=== PATIENT | female | born 1980 | race Caucasian/White ===

== ENCOUNTER 2017-03-28 10:08 | Emergency (ER) | payer SELFPAY ==
--- NOTE | 2017-03-28 12:33 | ER Document Report ---
ED Medical Screen (RME) - General Chief Complaint: Eye Problem Stated Complaint: LEFT EYE PAIN Mode of Arrival: Ambulatory Information source: Patient TRAVEL OUTSIDE OF THE [place] IN LAST 30 DAYS: No - HPI Onset: Other - SEEING BLACK SPOTS x 3 DAYS, EYE PAIN BEGAN TODAY Onset/Duration: Gradual Quality of pain: Pressure Severity: Moderate Associated Symptoms: None Exacerbated by: Other - BRIGHT LIGHTS Relieved by: Denies Similar symptoms previously: No Recently seen / treated by doctor: No - Related Data Smoking: Non-smoker Allergies/Adverse Reactions: latex [Latex] Allergy (Verified 03/28/17 10:15) Past Medical History - General Information source: Patient - Past Medical History Cardiac Medical History: Reports: None Pulmonary Medical History: Reports: None EENT Medical History: Reports: None Neurological Medical History: Reports: None Endocrine Medical History: Reports: None Renal/ Medical History: Reports: None. Denies: Hx Peritoneal Dialysis Malignancy Medical History: Reports: None GI Medical History: Reports: None Musculoskeltal Medical History: Reports None Psychiatric Medical History: Reports: None Past Surgical History: Reports: Hx Section - Immunizations Hx Diphtheria, Pertussis, Tetanus Vaccination: Yes Review of Systems - Review of Systems Constitutional: No symptoms reported. denies: Chills, Fever EENT: Eye pain Cardiovascular: No symptoms reported Respiratory: No symptoms reported Physical Exam - Vital signs Vitals: Temp Pulse Resp BP Pulse Ox 98.9 F 73 18 177/85 H 96 03/28/17 10:03/28/17 10:03/28/17 10:03/28/17 10:03/28/17 10:17 Interpretation: Hypertensive - HEENT Head: Normocephalic Eyes: Normal. No: Periorbital edema Conjunctiva: No: Injected Cornea: Normal Extraocular movements intact: Yes Pupils: PERRL Visual acuity- Right eye: 20/25 Visual acuity- Left eye: 20/50 Visual acuity- Both eyes: 20/25 Corrective lenses worn: Yes Fundascopic: Normal, Other - MILD PHOTOPHOBIA O.S. Nerve palsy: No - Respiratory Respiratory status: No respiratory distress - Cardiovascular Rhythm: Regular Course - Vital Signs Vital signs: Temp Pulse Resp BP Pulse Ox 98.9 F 73 18 177/85 H 96 03/28/17 10:03/28/17 10:03/28/17 10:17 03/28/17 10:17 03/28/17 10:17
--- NOTE | 2017-03-28 17:18 | ER Document Report ---
ED General - General Chief Complaint: Eye Problem Stated Complaint: LEFT EYE PAIN Mode of Arrival: Ambulatory Notes: Patient is a 37 year old female who presents with 5 day history of "seeing black spots" She denies any pain in her left eye but describes a "pressure" behind her eye that occurred when she woke up this morning. She does not wear contacts but does wear glasses. She denies any sensation of "curtain falling over her vision" or loss of peripheral or central vision. Denies any injury to eye or FB sensation, associated headache, dizziness, or lightheadedness. Denies any discharge or swelling. Visual acuity in R eye 20/25, L eye 20/50, bilateral 20/25. TRAVEL OUTSIDE OF THE [place] IN LAST 30 DAYS: No - Related Data Allergies/Adverse Reactions: latex [Latex] Allergy (Verified 03/28/17 10:15) Past Medical History - General Information source: Patient - Social History Smoking Status: Current Every Day Smoker Chew tobacco use (# tins/day): No Frequency of alcohol use: None Drug Abuse: None Family History: Reviewed & Not Pertinent Patient has suicidal ideation: No Patient has homicidal ideation: No - Past Medical History Cardiac Medical History: Reports: None Pulmonary Medical History: Reports: None EENT Medical History: Reports: None Neurological Medical History: Reports: None Endocrine Medical History: Reports: None Renal/ Medical History: Reports: None. Denies: Hx Peritoneal Dialysis Malignancy Medical History: Reports: None GI Medical History: Reports: None Musculoskeltal Medical History: Reports None Psychiatric Medical History: Reports: None Past Surgical History: Reports: Hx Section - Immunizations Hx Diphtheria, Pertussis, Tetanus Vaccination: Yes Review of Systems - Review of Systems Constitutional: No symptoms reported EENT: See HPI Cardiovascular: No symptoms reported Respiratory: No symptoms reported Gastrointestinal: No symptoms reported Genitourinary: No symptoms reported Female Genitourinary: No symptoms reported Musculoskeletal: No symptoms reported Skin: No symptoms reported Hematologic/Lymphatic: No symptoms reported Neurological/Psychological: No symptoms reported Physical Exam - Vital signs Vitals: Temp Pulse Resp BP Pulse Ox 98.9 F 73 18 177/85 H 96 03/28/17 10:17 03/28/17 10:17 03/28/17 10:17 03/28/17 10:17 03/28/17 10:17 - Notes Notes: PHYSICAL EXAM: CONSTITUTIONAL: Alert and oriented, well-appearing and in no acute distress. HENT: Normocephalic, atraumatic. Moist mucous membranes. EYES: Pupils equal round and reactive to light, EOM intact. Sclera anicteric, conjunctiva are normal. No entrapment. Opthalmic exam normal. No chemosis or FB. HEART: Regular rate and rhythm without murmurs. LUNGS: CTAB and equal. No wheezes, rales or rhonchi. EXTREMITIES: Normal range of motion, no pitting edema. No cyanosis. Cap Refill < 3 seconds. NEURO: Cranial nerves grossly intact. Normal sensory/motor exams. PSYCH: Normal mood, normal affect. SKIN: Warm and dry. Normal turgor. No rashes or lesions noted. - HEENT Visual acuity- Right eye: 20/25 Visual acuity- Left eye: 20/50 Visual acuity- Both eyes: 20/25 Corrective lenses worn: Yes - prescription glasses not contacts Course - Re-evaluation Re-evalutation: 03/28/17 16:37 Patient seen and examined. Opthalmic exam negative for abnormalities. Visual acuity R 20/25, L 20/50, both 20/25. Sherwin any pain or sudden blindness. Tetracaine given for comfort during exam. 03/28/17 18:38 Discussed case and consulted with Dr. Robert Villalobos opthalmology reception clerk who suggested close follow-up in his office tomorrow morning at 9:00 am for further evaluation. He felt patient was stable enough to be discharged and seen tomorrow. Discussed plan with patient who is agreeable. Advised patient to rest and avoid any rigorous activity between now and her appointment tomorrow. Given patient script for pain medication and follow-up instructions. At this time, will discharge with return precautions and follow-up recommendations. Verbal discharge instructions given at the bedside and opportunity for questions given. Medication warnings reviewed. Patient is in agreement with this plan and has verbalized understanding of return precautions and the need for primary care follow-up in the next 24-72 hours. - Vital Signs Vital signs: Temp Pulse Resp BP Pulse Ox 98.0 F 60 18 143/87 H 98 03/28/17 18:59 03/28/17 18:59 03/28/17 18:59 03/28/17 18:59 05/01/17 18:59 Discharge - Discharge Clinical Impression: Floaters in visual field Qualifiers: Laterality: left Qualified Code(s): H43.392 - Other vitreous opacities, left eye Condition: Stable Disposition: HOME, SELF-CARE Additional Instructions: You are to follow-up with Dr. Robert Villalobos tomorrow morning at his clinic at 9 AM. Address: [address] [place] [address] [place] [address] Avoid aggressive or rigorous activity until you are seen by Dr. Villalobos tomorrow. Return immediately if you notice sudden loss of vision with or without severe pain. Prescriptions: Hydrocodone/Acetaminophen [Vicodin 5-300 mg Tablet] 1 tab PO ASDIR PRN #15 tab PRN Reason: Forms: Elevated Blood Pressure
[2017-03-28] MEDS ORDERED: TETRACAINE HCL 0.5% OPH SOLN 2 ML OS ONE (17:19)
[2017-03-28] MEDS ORDERED: TRAMADOL HCL 50 MG TABLET PO ONE (18:00)
[2017-03-28 19:01] VITALS: BP 143/87
== END 2017-03-28 18:59 | disposition home or self-care (01) ==
LOC: ER 10:08
DX: H43.392 Other vitreous opacities, left eye (principal); Z91.040 Latex allergy status; F17.200 Nicotine dependence, unspecified, uncomplicated
CPT/HCPCS: 99283

== ENCOUNTER 2017-07-15 13:15 | Emergency (ER) | payer SELFPAY ==
[2017-07-15] MEDS ORDERED: KETOROLAC TROMETHAMINE 60 MG/2 ML SDV IM ONE (13:58)
--- NOTE | 2017-07-15 15:26 | RADIOLOGY REPORT (SQ) ---
EXAM DESCRIPTION: MANDIBLE 4 VIEWS OR MORE COMPLETED DATE/TIME: 07/15/2017 2:49 pm REASON FOR STUDY: left jaw swelling inside mouth COMPARISON: None. NUMBER OF VIEWS: Four view. TECHNIQUE: Images of the mandible acquired. AP, Sangeetha's, angled right, angled left mandible images. LIMITATIONS: None. FINDINGS: MANDIBLE: No acute fracture. No disruption of the right or left temporomandibular joints. ORBITS: No fracture. No foreign body. SINUSES: No mucosal thickening. No air fluid levels. FACIAL BONES: No fracture. OTHER: No aggressive bony erosion. No periapical tooth root lucencies. IMPRESSION: NO ACUTE FRACTURE OR MALALIGNMENT. No aggressive bony erosion. No periapical tooth ro ot lucencies. TECHNICAL DOCUMENTATION: JOB ID: [id number] [employer]- All Rights Reserved
--- NOTE | 2017-07-15 15:39 | ER Document Report ---
HPI - HPI Patient complains to provider of: mouth problem Onset: Other Onset/Duration: Gradual Quality of pain: Throbbing Severity: Moderate Pain Level: 3 Context: Patient states she started developing swelling to the left lower jaw next to her teeth about 1 month ago. It has gotten larger in the last week and is painful. No fever. Associated Symptoms: None Exacerbated by: Denies Relieved by: Denies Similar symptoms previously: No Recently seen / treated by doctor: No - ROS ROS below otherwise negative: Yes Systems Reviewed and Negative: Yes All other systems reviewed and negative - CONSTITUTIONAL Constitutional: DENIES: Fever - EENT EENT: DENIES: Congestion - NEURO Neurology: DENIES: Headache - CARDIOVASCULAR Cardiovascular: DENIES: Chest pain - RESPIRATORY Respiratory: DENIES: Trouble Breathing - GASTROINTESTINAL Gastrointestinal: DENIES: Abdominal Pain - REPRODUCTIVE Reproductive: DENIES: : - MUSCULOSKELETAL Musculoskeletal: DENIES: Extremity pain - DERM Skin Color: Normal Past Medical History - General Information source: Patient - Social History Smoking Status: Current Every Day Smoker Chew tobacco use (# tins/day): No Frequency of alcohol use: None Drug Abuse: None Lives with: Family Family History: Reviewed & Not Pertinent - Medical History Medical History: Negative Past Surgical History: Reports: Hx Section - Immunizations Hx Diphtheria, Pertussis, Tetanus Vaccination: Yes Vertical Provider Document - CONSTITUTIONAL Agree With Documented VS: Yes Exam Limitations: No Limitations General Appearance: WD/WN, No Apparent Distress - INFECTION CONTROL TRAVEL OUTSIDE OF THE [place] IN LAST 30 DAYS: No - HEENT HEENT: Atraumatic, Normal ENT Exam, Normocephalic Mouth Diagram: 1 - hard, bony feeling area. Normal mucosal color, no erythema or evidence of abscess. - NECK Neck: Normal Inspection, Supple - RESPIRATORY Respiratory: Breath Sounds Normal, No Respiratory Distress O2 Sat by Pulse Oximetry: 97 - CARDIOVASCULAR Cardiovascular: Regular Rate, Regular Rhythm - MUSCULOSKELETAL/EXTREMETIES Musculoskeletal/Extremeties: MAEW - NEURO Level of Consciousness: Awake, Alert, Appropriate - DERM Integumentary: Warm, Dry, No Rash Course - Vital Signs Vital signs: Temp Pulse Resp BP Pulse Ox 98.3 F 92 18 162/85 H 97 07/15/17 13:20 07/15/17 13:20 07/15/17 13:20 07/15/17 13:20 07/15/17 13:20 Discharge - Discharge Clinical Impression: Buccal exostosis of jaw Condition: Good Disposition: HOME, SELF-CARE Additional Instructions: motrin prn you must follow up with oral surgeon for further evaluation, does not appear to be an abscess, but more of a bone growth (exostosis) which can occur anywhere in the body. return if worsens and as needed Prescriptions: Ibuprofen 800 mg PO PRN PRN #30 tablet PRN Reason: Tramadol HCl 50 mg PO PRN PRN #15 tablet PRN Reason: Referrals: ESTELITA KNOTT DDS [ACTIVE STAFF] - Follow up as needed
[2017-07-15 16:15] VITALS: BP 154/82
== END 2017-07-15 16:10 | disposition home or self-care (01) ==
LOC: ER 13:15
DX: M27.8 Other specified diseases of jaws (principal); K08.89 Other specified disorders of teeth and supporting structures; R68.84 Jaw pain; F17.200 Nicotine dependence, unspecified, uncomplicated
CPT/HCPCS: 99283; 96372; 70110; J1885

== ENCOUNTER 2019-11-28 01:27 | Outpatient (CLI) | payer MEDICAID ==
[2019-11-28 02:04] LABS: HEMATOCRIT 41.2 % (36.0-47.0); HEMOGLOBIN 13.9 g/dL (12.0-15.5); MEAN CORPUSCULAR HEMOGLOBIN 29.3 pg (27.0-33.4); MEAN CORPUSCULAR HGB CONC 33.7 g/dL (32.0-36.0); MEAN CORPUSCULAR VOLUME 87 fl (80-97); PLATELET COUNT 268 10^3/uL (150-450); RED BLOOD COUNT 4.74 10^6/uL (3.72-5.28); RED CELL DISTRIBUTION WIDTH 14.1 % (11.5-14.0); WHITE BLOOD COUNT 18.8 10^3/uL (4.0-10.5)
[2019-11-28 02:06] LABS: APPEARANCE,URINE SLIGHTLY-CLOUDY; BILIRUBIN,URINE NEGATIVE (NEGATIVE); COLOR,URINE YELLOW; GLUCOSE, URINE 50 mg/dL (NEGATIVE); KETONES,URINE NEGATIVE (NEGATIVE); LEUKOCYTE ESTERASE,URINE NEGATIVE (NEGATIVE); NITRITE,URINE NEGATIVE (NEGATIVE); PROTEIN,URINE 30 mg/dL (NEGATIVE); URINE SPECIFIC GRAVITY 1.019; UROBILINOGEN,URINE NEGATIVE mg/dL (<2.0)
[2019-11-28 02:19] LABS: ALBUMIN 3.5 g/dL (3.5-5.0); ALKALINE PHOSPHATASE 107 U/L (38-126); ANION GAP 11 (5-19); ASPARTATE AMINO TRANSFERASE 12 U/L (14-36); BILIRUBIN,DIRECT 0.2 mg/dL (0.0-0.4); BILIRUBIN,TOTAL 0.3 mg/dL (0.2-1.3); BLOOD UREA NITROGEN 10 mg/dL (7-20); CALCIUM 9.5 mg/dL (8.4-10.2); CARBON DIOXIDE 19 mmol/L (22-30); CHLORIDE 107 mmol/L (98-107); GLUCOSE 138 mg/dL (75-110); POTASSIUM 4.2 mmol/L (3.6-5.0); TOTAL PROTEIN 6.3 g/dL (6.3-8.2); URIC ACID 4.9 mg/dL (2.5-7.0)
[2019-11-28 02:24] LABS: URINE AMPHETAMINES SCREEN NEGATIVE; URINE BARBITURATES SCREEN NEGATIVE; URINE BENZODIAZEPINES SCREEN NEGATIVE; URINE COCAINE SCREEN NEGATIVE; URINE MARIJUANA (THC) SCREEN NEGATIVE; URINE METHADONE SCREEN NEGATIVE; URINE PHENCYCLIDINE SCREEN NEGATIVE
[2019-11-28 02:33] LABS: UR PRO/CREAT RATIO RESULT 0.2 mg/mg (0.0-0.2); URINE PROTEIN 24.6 mg/dL (<12)
[2019-11-28] MEDS ORDERED: BUTALB/ACETAMINOPHEN/CAFFEINE 1 TAB EACH ONE (02:44)
[2019-11-28] MEDS ORDERED: BUTALB/ACETAMINOPHEN/CAFFEINE 1 TAB EACH PO ONE (03:00)
--- NOTE | 2019-11-28 03:57 | Non Stress Test Report ---
Non Stress Test Datetime Report Generated by CPN: 11/28/2019 03:56 DEMOGRAPHIC EGA NST: 34.5 INDICATION Indication for Study (NST) Other: gestational age > 32 weeks VITAL SIGNS Temperature - NST: 98.7 Pulse - NST: 82 RESP - NST: 16 NBPSYS NST: 139 NBPDIA NST: 66 MONITORING Monitor Explained: Monitor Explained; Test Explained; Patient Verbalized Understanding Time on Monitor: 11/28/2019 02:44 Time off Monitor: 11/28/2019 03:04 NST Duration: 20 NST INTERVENTIONS NST Interventions: None Physician Notified NST: Dr. Alba BABY A: [id number] BABY A Movement : Present Contraction Frequency : 0 FHR Baseline : 120 Accelerations : 15X15 Decelerations : None Variability : Moderate 6-25bpm NST Review: Meets Criteria for Reactive NST NST Review and Verified By : Amanda Edmond RN NST Results: Reactive NST REPORT Report Trigger: Send Report
[2019-11-29 18:39] LABS: URINE PROTEIN 13.8 mg/dL (<12)
[2019-11-29 18:40] LABS: 24 HOUR URINE PROTEIN RESULT 337 mg/day (42-225)
== END 2019-11-28 03:49 | disposition home or self-care (01) ==
LOC: LC 01:27
PROVIDERS: ATTEND Student in an Organized Health Care Education/Training Program
DX: O16.3 Unspecified maternal hypertension, third trimester (principal); O09.523 Supervision of elderly multigravida, third trimester; O99.333 Smoking (tobacco) complicating pregnancy, third trimester; F17.210 Nicotine dependence, cigarettes, uncomplicated; Z3A.34 34 weeks gestation of pregnancy
CPT/HCPCS: 59025; 36415; 83615; 84156; 84550; 82570; 85027; 80053; 81001; 80307; J3490

== ENCOUNTER 2019-12-12 14:29 | Inpatient (IN) | payer MEDICAID ==
[2019-12-12 15:08] LABS: APPEARANCE,URINE CLEAR; BILIRUBIN,URINE NEGATIVE (NEGATIVE); COLOR,URINE YELLOW; GLUCOSE, URINE 50 mg/dL (NEGATIVE); KETONES,URINE TRACE mg/dL (NEGATIVE); LEUKOCYTE ESTERASE,URINE NEGATIVE (NEGATIVE); NITRITE,URINE NEGATIVE (NEGATIVE); PROTEIN,URINE 100 mg/dL (NEGATIVE); URINE SPECIFIC GRAVITY 1.029; UROBILINOGEN,URINE NEGATIVE mg/dL (<2.0)
[2019-12-12 15:39] LABS: ABSOLUTE BASOPHILS # (AUTO) 0.1 10^3/uL (0.0-0.2); ABSOLUTE EOSINOPHILS # (AUTO) 0.1 10^3/uL (0.0-0.6); ABSOLUTE LYMPHOCYTES (AUTO) 2.9 10^3/uL (0.5-4.7); ABSOLUTE MONOCYTES (AUTO) 0.7 10^3/uL (0.1-1.4); ABSOLUTE NEUT (AUTO) 11.3 10^3/uL (1.7-8.2); BASOPHILS % (AUTO) 0.6 % (0-2); EOSINOPHILS % (AUTO) 0.7 % (0-6); HEMATOCRIT 38.5 % (36.0-47.0); HEMOGLOBIN 13.3 g/dL (12.0-15.5); LYMPHOCYTES % (AUTO) 18.9 % (13-45); MEAN CORPUSCULAR HEMOGLOBIN 30.1 pg (27.0-33.4); MEAN CORPUSCULAR HGB CONC 34.6 g/dL (32.0-36.0); MEAN CORPUSCULAR VOLUME 87 fl (80-97); MONOCYTES % (AUTO) 4.8 % (3-13); PLATELET COUNT 278 10^3/uL (150-450); RED BLOOD COUNT 4.44 10^6/uL (3.72-5.28); TOTAL CELLS COUNTED % (AUTO) 100 %; WHITE BLOOD COUNT 15.1 10^3/uL (4.0-10.5)
[2019-12-12 15:54] LABS: ALKALINE PHOSPHATASE 115 U/L (38-126); ANION GAP 9 (5-19); ASPARTATE AMINO TRANSFERASE 13 U/L (14-36); BILIRUBIN,DIRECT 0.1 mg/dL (0.0-0.4); BILIRUBIN,TOTAL 0.2 mg/dL (0.2-1.3); BLOOD UREA NITROGEN 9 mg/dL (7-20); CALCIUM 9.1 mg/dL (8.4-10.2); CARBON DIOXIDE 19 mmol/L (22-30); CHLORIDE 106 mmol/L (98-107); GLUCOSE 91 mg/dL (75-110); POTASSIUM 3.9 mmol/L (3.6-5.0); TOTAL PROTEIN 5.7 g/dL (6.3-8.2); URIC ACID 5.6 mg/dL (2.5-7.0)
[2019-12-12 16:27] LABS: URINE AMPHETAMINES SCREEN NEGATIVE; URINE BARBITURATES SCREEN NEGATIVE; URINE BENZODIAZEPINES SCREEN NEGATIVE; URINE COCAINE SCREEN NEGATIVE; URINE MARIJUANA (THC) SCREEN NEGATIVE; URINE METHADONE SCREEN NEGATIVE; URINE PHENCYCLIDINE SCREEN NEGATIVE
[2019-12-12 16:31] LABS: UR PRO/CREAT RATIO RESULT 0.3 mg/mg (0.0-0.2); URINE CREATININE 234.3 mg/dL (16-327); URINE PROTEIN 74.8 mg/dL (<12)
[2019-12-12] MEDS ORDERED: BETAMET ACET/BETAMET NA INJ 6 MG/1 ML IM ONE (17:14)
[2019-12-12] MEDS ORDERED: BETAMET ACET/BETAMET NA INJ 6 MG/1 ML ONE (17:40)
[2019-12-12] MEDS ORDERED: NIFEDIPINE 30 MG TAB.ER.24 PO ONE (17:41)
[2019-12-12] MEDS ORDERED: GLUCAGON,HUMAN RECOMB 1 MG INJ IM PRN (20:48)
[2019-12-12] MEDS ORDERED: DEXTROSE 50%-WATER 25 GM/50 ML DISP.SYRIN IV PRN ×2 (20:48)
[2019-12-12] MEDS ORDERED: DEXTROSE 40% GEL 15 GM TUBE PO PRN ×2 (20:48)
[2019-12-12 20:56] LABS: CHLAM PCR NOT DETECTED (NOT DETECT)
[2019-12-12] MEDS: NIFEDIPINE 30 MG TAB.ER.24 PO SCH (21:01)
[2019-12-12] MEDS ORDERED: GLYBURIDE 5 MG TABLET ONE (21:31)
[2019-12-12] MEDS ORDERED: INSULIN REG, HUMAN 100 UNIT/ML 3 ML VIAL (PYX) ONE (22:13)
[2019-12-12] MEDS: INSULIN REG, HUMAN 100 UNIT/ML 3 ML VIAL (PYX) SUBCUT SCH (22:15)
[2019-12-12] MEDS ORDERED: MAG HYDROX/AL HYDROX/SIMETH SUSP 30 ML UDCUP ONE (23:02)
[2019-12-12] MEDS: GLYBURIDE 2.5 MG TABLET PO SCH (23:04)
--- NOTE | 2019-12-12 23:15 | Non Stress Test Report ---
Non Stress Test Datetime Report Generated by CPN: 12/12/2019 23:14 DEMOGRAPHIC EGA NST: 36.5 EGA NST: 36.5 INDICATION Indication for Study (NST) Other: Q Shift NST for gestional age greater than 32 weeks Indication for Study (NST) Other: OBESITY VITAL SIGNS Temperature - NST: 98.1 Pulse - NST: 79 RESP - NST: 17 NBPSYS NST: 151 NBPDIA NST: 69 MONITORING Monitor Explained: Monitor Explained; Test Explained; Patient Verbalized Understanding Monitor Explained: Monitor Explained; Test Explained; Patient Verbalized Understanding Time on Monitor: 12/12/2019 21:59 Time on Monitor: 12/12/2019 14:45 Time off Monitor: 12/12/2019 22:57 NST Duration: 58 NST INTERVENTIONS NST Interventions: PO Hydration; Meal Given; Reposition Patient NST Interventions: PO Hydration; Reposition Patient Physician Notified NST: BABY A: [id number] BABY A Movement : Present Movement : Present Contraction Frequency : uterine irritabilty Contraction Frequency : IRREG FHR Baseline : 135 FHR Baseline : 135 Accelerations : 15X15 Accelerations : 15X15 Accelerations : 15X15 Decelerations : None Decelerations : None Variability : Moderate 6-25bpm Variability : Moderate 6-25bpm NST Review: Meets Criteria for Reactive NST NST Review and Verified By : JORDIN Alexis NST Results: Reactive NST Results: Reactive NST REPORT Report Trigger: Send Report
[2019-12-12] MEDS ORDERED: MAG HYDROX/AL HYDROX/SIMETH SUSP 30 ML UDCUP PO ONE (23:30)
--- NOTE | 2019-12-13 07:59 | Admission Physical ---
Datetime Report Generated by CPN: 12/13/2019 07:59 CURRENT ADMISSION Chief Complaint: Signs/Symptoms Gestational HTN Indication for Induction: Not Applicable Admit Impression : , Intrauterine ; No Active Labor; Intact Membranes; Observation/Evaluation Admit Plan: Admit to Unit; Observation/Evaluation ALLERGIES Medication Allergies: No Medication Allergies: latex (12/12/2019) Latex: Latex Allergies Food Allergies: n/a Environmental Allergies: n/a OBSTETRICAL HISTORY EDC: 01/04/2020 00:00 : 3 Para: 2 Term: 2 : 0 SAB: 0 IAB: 0 Ectopic: 0 Livin Cesareans: 2 VBACs: 0 Multiple Births: 0 Gestational Diabetes: Yes Rh Sensitization: No Incompetent Cervix: No ADAM: No Infertility: No ART Treatment: No Uterine Anomaly: No IUGR: No Hx Previous C/S: Yes Macrosomia: No Hx Loss/Stillborn: No PIH: No Hx : No Placenta Previa/Abruption: No Depression/PP Depression: No PTL/PROM: No Post Hemorrhage: No Current Procedures: Ultrasound; NST Obstetrical History Comments: [id number] G3- current SEE RECORDS Alcohol: No Marijuana : No Cocaine: No Other Illicit Drugs: No Cigarettes: Current Everyday Smoker. [id number] MEDICAL HISTORY Diabetes: No Diabetes Type: Gestational Diabetes Blood Transfusion: No Pulmonary Disease (Asthma, TB): No Breast Disease: No Hypertension: Yes Actuary Surgery: No Heart Disease: No Hosp/Surgery: Yes Autoimmune Disorder: No Anesthetic Complications: No Kidney Disease: No Abnormal Pap Smear: Yes Neuro/Epilepsy: No Psychiatric Disorders: No Other Medical Diseases: No Hepatitis/Liver Disease: No Significant Family History: No Varicosities/Phlebitis: No Trauma/Violence : No Thyroid Dysfunction: No INFECTIOUS HISTORY Gonorrhea: No Genital Herpes: No Chlamydia: No Tuberculosis: No Syphilis: No Hepatitis: No HIV/AIDS Exposure: No Rash or Viral Illness: No HPV: No PHYSICAL EXAM General: Normal HEENT: Normal Neurologic: Normal Thyroid: Deferred Heart: Normal Lungs: Normal Breast: Deferred Back: Normal Abdomen: Normal Genitourinary Exam: Normal Extremities: Normal DTRs: Normal Pelvic Type: Adequate Vital Signs: Reviewed MEMBRANES Membranes: Intact FETUS A EGA: 36.5 Monitoring: External US FHR- Baseline: 125 Variability: Moderate 6-25bpm Accelerations: 15X15 FHR Category: Category I Admit Comment: 39yo at 36+5ega presents from the office for elevated BPs. She had severe range BPs in the office. She denies CERDA/blurry vision/RUQ pain. She reports that she has not taken her BP meds in 3-4days (Procardia XL 30mg po daily) and also has not taken her Glyburide (1.25mg QHS with snack). A long discussion with patient and family regarding with poor control of GDM. fasting at her 3 hr GTT was 130. Therefore she is likely prediabetic. Hb A1c on admission is 6.4. H/o C/S x 2. AMA. SMoker down to 3 cig per day. Plan treat BPs and if can maintain BPs within mild range then may be able to delay imminent delivery. She will need BMZ in case of need for delivery prior to 37wks. will cover sugar values with insulin SS. She has latex allergy - but spoke with pharmacy and there is no preservative or latex in the insulin in our hospital that should give patient an allergy. case d/w NICU Dr. Mohan as well due to risk of respiratory distress in uncontrolled DM and less than 37wks. will try to collect 24 hour UTP and get at least 12 hours of steroids for FLM. Will change Procardia to BID. Admit for optimize until delivery (hopefully after 24 hours of steroids) and sugar control - to decrease risk of respiratory distress. Consent signed for Repeat section with BTL. GC/Chlam done and GBS done since not done in office yet. PLANS FOR LABOR AND DELIVERY Labor and Delivery: None Pain Management: Spinal Feeding Preference: Breast Benefit of Breast Feed Discussed: Yes Circumcision: N/A INFORMED CONSENT Informed Consent Obtained: Section Delivery; Risks, Benefits and Alternatives Discussed Signature: with User ID: [email or web address]
[2019-12-13] MEDS ORDERED: DEXTROSE 50%-WATER 25 GM/50 ML DISP.SYRIN IV PRN ×2 (08:33)
[2019-12-13] MEDS ORDERED: GLUCAGON,HUMAN RECOMB 1 MG INJ IM PRN (08:33)
[2019-12-13] MEDS ORDERED: DEXTROSE 40% GEL 15 GM TUBE PO PRN ×2 (08:33)
[2019-12-13] MEDS ORDERED: INSULIN REG, HUMAN 100 UNIT/ML 3 ML VIAL (PYX) SUBCUT SCH ×3 (08:45→13:00)
[2019-12-13] MEDS ORDERED: INSULIN NPH (ISOPHANE), HUMAN 100 UNIT/ML 3 ML ONE (08:45)
[2019-12-13] MEDS: INSULIN NPH (ISOPHANE), HUMAN 100 UNIT/ML 3 ML SUBCUT SCH (08:49)
[2019-12-13] MEDS ORDERED: NIFEDIPINE 30 MG TAB.ER.24 PO ONE (09:47)
[2019-12-13] MEDS: NIFEDIPINE 30 MG TAB.ER.24 PO SCH ×2 (09:50→22:29)
--- NOTE | 2019-12-13 09:59 | Non Stress Test Report ---
Non Stress Test Datetime Report Generated by CPN: 12/13/2019 09:58 DEMOGRAPHIC EGA NST: 36.6 INDICATION Indication for Study (NST) Other: Ordered Q Shift MONITORING Monitor Explained: Monitor Explained; Test Explained; Patient Verbalized Understanding Time on Monitor: 12/13/2019 09:23 Time off Monitor: 12/13/2019 09:44 NST Duration: 21 NST INTERVENTIONS NST Interventions: None Physician Notified NST: A Fajardo CNM BABY A Movement : Present Contraction Frequency : none FHR Baseline : 130 Accelerations : 15X15 Decelerations : None Variability : Moderate 6-25bpm NST Review: Meets Criteria for Reactive NST NST Review and Verified By : Fermin Nicolas RN NST Results: Reactive NST REPORT Report Trigger: Send Report
[2019-12-13] MEDS ORDERED: BETAMET ACET/BETAMET NA INJ 6 MG/1 ML IM SCH (12:16)
[2019-12-13] MEDS: INSULIN REG, HUMAN 100 UNIT/ML 3 ML VIAL (PYX) SUBCUT SCH ×2 (14:24→20:10)
[2019-12-13 15:36] LABS: URINE PROTEIN 24.9 mg/dL (<12)
[2019-12-13 15:37] LABS: 24 HOUR URINE PROTEIN RESULT 471 mg/day (42-225)
[2019-12-13] MEDS ORDERED: BETAMET ACET/BETAMET NA INJ 6 MG/1 ML IM PRN (17:52)
[2019-12-13] MEDS ORDERED: DIPHENHYDRAMINE HCL 25 MG CAPSULE PO PRN (21:40)
[2019-12-13] MEDS: GLYBURIDE 2.5 MG TABLET PO SCH (22:30)
[2019-12-14] MEDS ORDERED: RINGERS SOLUTION,LACTATED 1,000 ML IV PRN (01:40)
[2019-12-14] MEDS ORDERED: RINGERS SOLUTION,LACTATED 1,000 ML IV ONE (01:40)
[2019-12-14] MEDS ORDERED: NORMAL SALINE 250 ML IV PRN (01:48)
[2019-12-14 02:40] LABS: ABSOLUTE BASOPHILS # (AUTO) 0.1 10^3/uL (0.0-0.2); ABSOLUTE MONOCYTES (AUTO) 0.5 10^3/uL (0.1-1.4); BASOPHILS % (AUTO) 0.4 % (0-2); HEMATOCRIT 38.8 % (36.0-47.0); LYMPHOCYTES % (AUTO) 13.6 % (13-45); MEAN CORPUSCULAR HEMOGLOBIN 29.3 pg (27.0-33.4); MEAN CORPUSCULAR HGB CONC 33.6 g/dL (32.0-36.0); MEAN CORPUSCULAR VOLUME 87 fl (80-97); MONOCYTES % (AUTO) 3.4 % (3-13); PLATELET COUNT 267 10^3/uL (150-450); RED BLOOD COUNT 4.45 10^6/uL (3.72-5.28); RED CELL DISTRIBUTION WIDTH 13.8 % (11.5-14.0); SEGMENTED NEUTROPHILS % (AUTO) 82.6 % (42-78); TOTAL CELLS COUNTED % (AUTO) 100 %; WHITE BLOOD COUNT 14.5 10^3/uL (4.0-10.5)
[2019-12-14] MEDS ORDERED: CEFAZOLIN SODIUM 3 GM in DEXTROSE 5%-WATER 50 ML IV PRN (06:00)
[2019-12-14] MEDS ORDERED: CEFAZOLIN INJ 1 GM VIAL ONE (06:18)
[2019-12-14] MEDS ORDERED: MIDAZOLAM 2 MG/2 ML INJ ONE (07:24)
[2019-12-14] MEDS ORDERED: FENTANYL CITRATE INJ/PF 100 MCG/2 ML AMPUL ONE ×2 (07:24→10:11)
[2019-12-14] MEDS ORDERED: KETOROLAC TROMETHAMINE INJ/PF 30 MG/1 ML SDV ONE (07:24)
[2019-12-14] MEDS ORDERED: OXYTOCIN 10 UNIT/ML VIAL ONE (07:24)
[2019-12-14] MEDS ORDERED: EPHEDRINE SULFATE INJ 50 MG/1 ML AMPULE ONE (07:24)
[2019-12-14] MEDS ORDERED: PHENYLEPHRINE HCL INJ/PF 10 MG/1 ML SDV ONE (07:24)
[2019-12-14] MEDS ORDERED: ONDANSETRON HCL INJ/PF 4 MG/2 ML SDV ONE (07:25)
[2019-12-14] MEDS ORDERED: METHYLERGONOVINE MALEATE INJ/PF 0.2 MG/1 ML AMPULE ONE (07:25)
[2019-12-14] MEDS ORDERED: ACETAMINOPHEN 1,000 MG/100 ML RTUPB IV ONE (07:25)
[2019-12-14] MEDS ORDERED: OXYTOCIN/NORMAL SALINE 20 UNIT/1,000 ML RTUINJ IV PRN (08:29)
[2019-12-14] MEDS ORDERED: MORPHINE SULFATE 10 MG/ML INJ IM PRN (08:29)
[2019-12-14] MEDS ORDERED: ACETAMINOPHEN 325 MG TABLET PO PRN (08:29)
[2019-12-14] MEDS ORDERED: SIMETHICONE 80 MG TAB.CHEW PO PRN (08:29)
[2019-12-14] MEDS ORDERED: DIPH/PERTUSS(ACELL)/TETANUS VAC/PF 0.5 ML SYR (>=10YO) IM PRN (08:29)
[2019-12-14] MEDS ORDERED: MEASLES,MUMPS&RUBELLA VACC/PF 0.5 ML VIAL SUBCUT PRN (08:29)
[2019-12-14] MEDS ORDERED: ACETAMINOPHEN 1,000 MG/100 ML RTUPB IV PRN (08:29)
[2019-12-14] MEDS ORDERED: PROMETHAZINE HCL INJ 25 MG/1 ML VIAL IV PRN ×3 (08:29→09:00)
--- NOTE | 2019-12-14 08:37 | PDOC DELIVERY SUMMARY ---
Delivery Summary - Maternal NICK: 01/04/20 Risk Factors: Gestational Diabetes, Induced HTN, Pre- Eclampsia Ruptured Membranes: AROM Time of Rupture: 08:05 Fluids: Clear - Delivery Presentation: Vertex Heart Rate Monitoring: Done Pre-Operatively Support Person Present: Yes Location: OR : Scheduled Placenta: Within Normal Limits Delivery of Placenta Date: 12/14/19 Delivery of Placenta Time: 08:08 - Medications Type of Anesthesia:: Spinal - Assess and Care Baby 1 Female Delivery of Date: 12/14/19 Delivery of Time: 08:07 Preprinted Number On Band: [id number] Infant Skin to Skin: Yes Skin to Skin (Mins): 6 To Nursery At: 08:18 Mode of Transport: [facility], [place]
--- NOTE | 2019-12-14 08:37 | Operative Report ---
Operative Report DATE OF SURGERY: 12/14/19 PREOPERATIVE DIAGNOSIS: Intrauterine the early term gestational diabe warren chronic hypertension prior section POSTOPERATIVE DIAGNOSIS: Same OPERATION: Repeat low transverse section delivery of a viable male Apgars of 8 9 and weighing 8 pounds SURGEON: NEVIN ARGUELLES ANESTHESIA: Spinal TISSUE REMOVED OR ALTERED: Placenta ESTIMATED BLOOD LOSS: Approximately 100 cc PROCEDURE: The patient was taken to the operating room where spinal anesthesia was obtained and found to be adequate. She was then prepped and draped in the normal sterile fashion and placed in the dorsal supine position with a leftward tilt. A Pfannenstiel skin incision was then made and carried through to the underlying layers of the fascia with the scalpel. The fascia was incised in the midline and the incision extended laterally with the Sanchez scissors. The superior aspect of the fascial incision was then grasped with Joselin clamps elevated and the underlying rectus muscles dissected off bluntly. Attention was then turned to the inferior aspect of the fascial incision which in a similar fashion was grasped, tented up with Davon clamps, and the rectus muscles dissected off bluntly. The rectus muscles were then in the midline and the peritoneum at the amount identified and entered bluntly. The peritoneal incision was then extended superiorly and inferiorly with good visualization of the bladder. [The bladder blade was inserted and the vesicouterine peritoneum identified grasped with Eritrean pickups and entered sharply with the Metzenbaum scissors. His incision was then extended laterally with the Metzenbaum scissors and a bladder flap created digitally. The bladder blade was then reinserted and the lower uterine segment incised in a transverse fashion with the scalpel. The uterine incision was then extended bluntly. The bladder blade was removed and the infant's head was delivered from cephalic presentation atraumatically with Kiwi vacuum extraction. The nose and mouth were suctioned and the cord doubly clamped and cut. And the infant was handed off to waiting pediatricians. The placenta was then delivered manully and the uterus exteriorized and cleared of all clots and debris. The uterine incision was then repaired with 1-0 Vicryl in a running locked fashion. A second layer of the same suture was used to obtain hemostasis via imbrication of the initial layer. The uterus was returned to the patient's abdomen. The gutters were cleared of all clots and debris. All operative sites were noted to be hemostatic. The fascia was reapproximated with 0 Vicryl in a running fashion from each lateral edge to the midline. The patient tolerated the procedure well. Sponge lap needle and instrument counts are correct -2. 2 g of Ancef were given prior to skin incision. The patient was taken to the recovery area awake and in stable condition.
[2019-12-14] MEDS ORDERED: DIPHENHYDRAMINE HCL 50 MG/ML VIAL IV PRN (09:00)
[2019-12-14] MEDS ORDERED: MEPERIDINE HCL/PF INJ 25 MG/1 ML DISP.SYRIN IV PRN (09:00)
[2019-12-14] MEDS ORDERED: FENTANYL CITRATE INJ/PF 100 MCG/2 ML AMPUL IV PRN ×3 (09:00)
[2019-12-14] MEDS ORDERED: MORPHINE SULFATE 10 MG/ML INJ IV PRN (09:00)
[2019-12-14] MEDS ORDERED: NIFEDIPINE 30 MG TAB.ER.24 PO SCH (10:00)
[2019-12-14] MEDS ORDERED: GLYBURIDE 5 MG TABLET PO SCH (10:00)
[2019-12-14] MEDS ORDERED: [UNRECOGNIZED DRUG - OTHER] PO SCH (10:00)
[2019-12-14] MEDS: INSULIN NPH (ISOPHANE), HUMAN 100 UNIT/ML 3 ML SUBCUT SCH (10:53)
[2019-12-14] MEDS: INSULIN REG, HUMAN 100 UNIT/ML 3 ML VIAL (PYX) SUBCUT SCH (10:54)
[2019-12-14] MEDS: OXYCODONE-ACETAMINOPHEN 5-325 MG TABLET PO PRN ×3 (11:05→21:19)
[2019-12-14] MEDS: MULTIVITAMINS W-IRON TABLET, CHEWABLE PO SCH (11:27)
[2019-12-14] MEDS: PRENATAL VITAMIN W DHA CAPSULE PO SCH (11:27)
[2019-12-14] MEDS: DOCUSATE SODIUM 100 MG CAPSULE PO SCH ×2 (11:29→17:07)
[2019-12-14] MEDS: NIFEDIPINE 30 MG TAB.ER.24 PO SCH ×2 (12:23→21:19)
[2019-12-14] MEDS: IBUPROFEN 800 MG TABLET PO SCH ×3 (13:20→23:48)
[2019-12-15] MEDS: OXYCODONE-ACETAMINOPHEN 5-325 MG TABLET PO PRN ×4 (02:08→21:01)
[2019-12-15] MEDS: IBUPROFEN 800 MG TABLET PO SCH ×3 (06:09→17:09)
[2019-12-15 07:12] LABS: HEMATOCRIT 36.7 % (36.0-47.0); HEMOGLOBIN 12.4 g/dL (12.0-15.5); MEAN CORPUSCULAR HEMOGLOBIN 29.7 pg (27.0-33.4); MEAN CORPUSCULAR HGB CONC 33.7 g/dL (32.0-36.0); MEAN CORPUSCULAR VOLUME 88 fl (80-97); PLATELET COUNT 260 10^3/uL (150-450); RED BLOOD COUNT 4.17 10^6/uL (3.72-5.28); RED CELL DISTRIBUTION WIDTH 14.2 % (11.5-14.0); WHITE BLOOD COUNT 18.9 10^3/uL (4.0-10.5)
[2019-12-15] MEDS: DOCUSATE SODIUM 100 MG CAPSULE PO SCH ×2 (09:38→17:08)
[2019-12-15] MEDS: NIFEDIPINE 30 MG TAB.ER.24 PO SCH ×2 (09:38→21:01)
[2019-12-15] MEDS: MULTIVITAMINS W-IRON TABLET, CHEWABLE PO SCH (09:39)
[2019-12-15] MEDS: PRENATAL VITAMIN W DHA CAPSULE PO SCH (09:40)
--- NOTE | 2019-12-15 09:41 | PDOC PROGRESS REPORT ---
Subjective-OB Progress Note for:: 12/15/19 - POD #1, doing well, s/p Rpt , up voiding, no complaints, Hx CHTN. A negative, will need Rhogam , Rubella Immune Physical Exam (OB) Vital Signs: Temp Pulse Resp BP Pulse Ox 98.1 F 80 16 150/70 H 97 12/15/19 07:37 12/15/19 07:37 12/15/19 07:37 12/15/19 07:37 12/15/19 07:37 Intake & Output 12/14/19 12/15/19 12/16/19 06:59 06:59 06:59 Intake Total 3130 Output Total 1800 Balance 1330 - General General Appearance: Appears well, Alert In distress: None - PIH/Pre-Eclampsia Clonus: Negative Headache: Absent Epigastric Pain: No Visual Changes: No - Dressing Removed: Yes Incision: Well Approximated Closure Type: Steri-Strips Note: needs a few steri-strips to incsion - Lochia Lochia Amount: Scant < 10 ml Lochia Color: Rubra/Red - Abdomen Description: Tender Hernia Present: No Fundal Description: Firm, Midline Fundal Height: u/u - u/2 - Respiratory Respiratory Status: No respiratory distress Breath sounds: Clear - Cardiovascular Heart Sounds: Normal auscultation - Abdominal Distension: No distension Abdominal Notes: +bowel sounds - Genitourinary Genitourinary Note: voiding - Extremities Upper extremity: Normal inspection Lower extremities: Normal inspection - Neurological Cognition: Normal Orientation: AAOx4 - Psychological Associated symptoms: Normal affect, Normal mood - Skin Skin Temperature: Warm Skin Moisture: Dry Objective-Diagnostic Laboratory: 12/15/19 06:55 12/12/19 15:23 12/15/19 12/15/19 06:55 06:55 WBC 18.9 H RBC 4.17 Hgb 12.4 Hct 36.7 MCV 88 MCH 29.7 MCHC 33.7 RDW 14.2 H Plt Count 260 Blood Type A NEGATIVE 12/12/19 18:44 Vaginal/Anorectal Group B Streptococcus Culture - Final GROUP B BETA HEMOLYTIC STREPTOCOCCUS RECOVERED Assessment and Plan(PN) - Assessment and Plan (1) S/P repeat low transverse Is this a current diagnosis for this admission?: Yes (2) Chronic hypertension affecting Is this a current diagnosis for this admission?: Yes (3) Gestational diabetes mellitus (GDM) controlled on oral hypoglycemic drug Qualifiers: Trimester: third trimester Qualified Code(s): O24.415 - Gestational diabetes mellitus in , controlled by oral hypoglycemic drugs Is this a current diagnosis for this admission?: Yes (4) Non-compliant patient Qualifiers: Trimester: third trimester Qualified Code(s): O09.893 - Supervision of other high risk pregnancies, third trimester; Z91.19 - Patient's noncompliance with other medical treatment and regimen Is this a current diagnosis for this admission?: Yes (5) Obesity affecting , antepartum Is this a current diagnosis for this admission?: Yes Plan: Ambulation encouraged, Routine PP orders - Time Spent with Patient Time with patient: Less than 15 minutes Medications reviewed and adjusted accordingly: Yes - Disposition Anticipated Discharge: Home Within: within 48 hours
[2019-12-15] MEDS ORDERED: INFLUENZA QUAD (6MOS+) 2019-20 VAC 0.5 ML SYR IM ONE (10:58)
[2019-12-15] MEDS ORDERED: IBUPROFEN 800 MG TABLET PO SCH (12:00)
[2019-12-15] MEDS: INSULIN REG, HUMAN 100 UNIT/ML 3 ML VIAL (PYX) SUBCUT SCH (19:00)
[2019-12-16] MEDS: IBUPROFEN 800 MG TABLET PO SCH ×4 (00:38→17:16)
[2019-12-16] MEDS: OXYCODONE-ACETAMINOPHEN 5-325 MG TABLET PO PRN ×4 (07:23→20:09)
--- NOTE | 2019-12-16 09:57 | PDOC PROGRESS REPORT ---
Subjective-OB Progress Note for:: 12/16/19 - POD #2, pt doing well, but states baby needs to stay today due to BS issues. Desires to stay at least one more day. A negative, needs Rhogam prior to d/c home. rubella immune. Hx GDM this . Hx CHTN. Physical Exam (OB) Vital Signs: Temp Pulse Resp BP Pulse Ox 97.5 F 76 20 132/62 H 98 12/16/19 07:31 12/16/19 07:31 12/16/19 07:31 12/16/19 07:31 12/16/19 07:31 Intake & Output 12/15/19 12/16/19 12/17/19 06:59 06:59 06:59 Intake Total 3130 Output Total 1800 Balance 1330 - General General Appearance: Appears well, Alert In distress: None - PIH/Pre-Eclampsia DTR's: 1 + Clonus: Negative Headache: Absent Epigastric Pain: No Visual Changes: No - Dressing Removed: Yes - Scant serous-sanguinous drainage noted on L side of incision Incision: Well Approximated Closure Type: Steri-Strips - Lochia Lochia Amount: Scant < 10 ml Lochia Color: Rubra/Red - Abdomen Description: Tender, Soft Hernia Present: No Fundal Description: Firm, Midline Fundal Height: u/u - u/2 Abdomen Note: incision needs steri- strips across to help approximate the edges - Respiratory Respiratory Status: No respiratory distress - Abdominal Distension: No distension Tenderness: Nontender - Genitourinary Genitourinary Note: voiding - Extremities Upper extremity: Normal inspection Lower extremities: Edema - +1 - Neurological Cognition: Normal Orientation: AAOx4 - Psychological Associated symptoms: Normal affect, Normal mood - Skin Skin Temperature: Warm Skin Moisture: Dry Objective-Diagnostic Laboratory: 12/15/19 06:55 12/12/19 15:23 12/15/19 06:55 Blood Type A NEGATIVE Assessment and Plan(PN) - Assessment and Plan (1) S/P repeat low transverse Is this a current diagnosis for this admission?: Yes (2) Chronic hypertension affecting Is this a current diagnosis for this admission?: Yes (3) Gestational diabetes mellitus (GDM) controlled on oral hypoglycemic drug Qualifiers: Trimester: third trimester Qualified Code(s): O24.415 - Gestational diabetes mellitus in , controlled by oral hypoglycemic drugs Is this a current diagnosis for this admission?: Yes (4) Non-compliant patient Qualifiers: Trimester: third trimester Qualified Code(s): O09.893 - Supervision of other high risk pregnancies, third trimester; Z91.19 - Patient's noncompliance with other medical treatment and regimen Is this a current diagnosis for this admission?: Yes (5) Obesity affecting , antepartum Is this a current diagnosis for this admission?: Yes Plan:: ambulation encouraged. RN to apply steri-strips, needs Rhogam, Routine PP orders - Time Spent with Patient Time with patient: Less than 15 minutes Medications reviewed and adjusted accordingly: Yes - Disposition Anticipated Discharge: Home Within: within 24 hours
[2019-12-16] MEDS: DOCUSATE SODIUM 100 MG CAPSULE PO SCH ×2 (10:16→17:15)
[2019-12-16] MEDS: PRENATAL VITAMIN W DHA CAPSULE PO SCH (10:16)
[2019-12-16] MEDS: NIFEDIPINE 30 MG TAB.ER.24 PO SCH ×2 (10:17→22:11)
[2019-12-16] MEDS: MULTIVITAMINS W-IRON TABLET, CHEWABLE PO SCH (10:27)
[2019-12-17] MEDS: IBUPROFEN 800 MG TABLET PO SCH ×3 (00:42→13:21)
[2019-12-17] MEDS: OXYCODONE-ACETAMINOPHEN 5-325 MG TABLET PO PRN ×3 (02:15→13:24)
--- NOTE | 2019-12-17 09:17 | PDOC DISCHARGE SUMMARY ---
Impression - Admit/DC Date/PCP Admission Date/Primary Care Provider: 12/12/19 17:59 CARYN VELARDE MD Discharge Date: 12/17/19 - Discharge Diagnosis (1) Chronic hypertension affecting Is this a current diagnosis for this admission?: Yes (2) Gestational diabetes mellitus (GDM) controlled on oral hypoglycemic drug Is this a current diagnosis for this admission?: Yes (3) Non-compliant patient Is this a current diagnosis for this admission?: Yes (4) Obesity affecting , antepartum Is this a current diagnosis for this admission?: Yes (5) S/P repeat low transverse Is this a current diagnosis for this admission?: Yes - Assessment Summary: patient admited for BP evaluation and subsequently had repeat c/section @ 37 wks gestation. Has had unremarkable post op course and BP now with better control on Procardia 30 BID. - Additional Information Resuscitation Status: Full Code Discharge Diet: As Tolerated Discharge Activity: Balance Activity w/Rest, No Driving, No Lifting Over 10 Pounds, Pelvic Rest, No tub bath Referrals: [facility] [Provider Group] (Follow up in 1 week at [facility] for incision and blood pressure check. Call the office and make an appt. ) Prescriptions: Oxycodone HCl/Acetaminophen [Percocet 5-325 mg Tablet] 1 tab PO Q4HP PRN 7 Days #28 tablet PRN Reason: Ibuprofen [Motrin 800 mg Tablet] 800 mg PO Q6 #60 tablet Nifedipine [Procardia XL 30 mg Tablet] 30 mg PO Q12 #60 tab.er.24 Home Medications: Glyburide [Diabeta 5 mg Tablet] 5 mg PO DAILY 11/28/19 Nifedipine [Procardia Xl] 30 mg PO DAILY 11/28/19 Pediatric Multivitamin No.49 [Flintstones Gummies] 2 tab PO DAILY 11/28/19 Ibuprofen [Motrin 800 mg Tablet] 800 mg PO Q6 #60 tablet 12/17/19 Nifedipine [Procardia XL 30 mg Tablet] 30 mg PO Q12 #60 tab.er.24 12/17/19 Oxycodone HCl/Acetaminophen [Percocet 5-325 mg Tablet] 1 tab PO Q4HP PRN 7 Days #28 tablet 12/17/19 History of Present Illiness History of Present Illness: ROSALINA HERNANDEZ is a 39 year old female Physical Exam - Physical Exam Vital Signs: Temp Pulse Resp BP Pulse Ox 98.1 F 82 18 155/83 H 97 12/17/19 07:47 12/17/19 07:47 12/17/19 07:47 12/17/19 07:47 12/17/19 07:47 Intake & Output 12/16/19 12/17/19 12/18/19 06:59 06:59 06:59 Intake Total 300 Balance 300 Results Laboratory Results: WBC 18.9 10^3/uL (4.0-10.5) H 12/15/19 06:55 RBC 4.17 10^6/uL (3.72-5.28) 12/15/19 06:55 Hgb 12.4 g/dL (12.0-15.5) 12/15/19 06:55 Hct 36.7 % (36.0-47.0) 12/15/19 06:55 MCV 88 fl (80-97) 12/15/19 06:55 MCH 29.7 pg (27.0-33.4) 12/15/19 06:55 MCHC 33.7 g/dL (32.0-36.0) 12/15/19 06:55 RDW 14.2 % (11.5-14.0) H 12/15/19 06:55 Plt Count 260 10^3/uL (150-450) 12/15/19 06:55 Lymph % (Auto) 13.6 % (13-45) 12/14/19 02:28 Emery % (Auto) 3.4 % (3-13) 12/14/19 02:28 Eos % (Auto) 0.0 % (0-6) 12/14/19 02:28 Baso % (Auto) 0.4 % (0-2) 12/14/19 02:28 Absolute Neuts (auto) 12.0 10^3/uL (1.7-8.2) H 12/14/19 02:28 Absolute Lymphs (auto) 2.0 10^3/uL (0.5-4.7) 12/14/19 02:28 Absolute Monos (auto) 0.5 10^3/uL (0.1-1.4) 12/14/19 02:28 Absolute Eos (auto) 0.0 10^3/uL (0.0-0.6) 12/14/19 02:28 Absolute Basos (auto) 0.1 10^3/uL (0.0-0.2) 12/14/19 02:28 Seg Neutrophils % 82.6 % (42-78) H 12/14/19 02:28 Platelet Estimate Cancelled 12/14/19 02:28 Sodium 134.1 mmol/L (137-145) L 12/12/19 15:23 Potassium 3.9 mmol/L (3.6-5.0) 12/12/19 15: Chloride 106 mmol/L (98-107) 12/12/19 15:23 Carbon Dioxide 19 mmol/L (22-30) L 12/12/19 15: Anion Gap 9 (5-19) 12/12/19 15: BUN 9 mg/dL (7-20) 12/12/19 15: Creatinine 0.52 mg/dL (0.52-1.25) 12/12/19 15: Est GFR ( Amer) > 60 (>60) 12/12/19 15: Est GFR (MDRD) Non-Af > 60 (>60) 12/12/19 15: Glucose 91 mg/dL (75-110) 12/12/19 15: POC Glucose 121 mg/dL (70-110) H 12/14/19 05:39 Hemoglobin A1c % 6.4 % (4.7-6.0) H 12/12/19 15:29 Uric Acid 5.6 mg/dL (2.5-7.0) 12/12/19 15: Calcium 9.1 mg/dL (8.4-10.2) 12/12/19 15: Total Bilirubin 0.2 mg/dL (0.2-1.3) 12/12/19 15: Direct Bilirubin 0.1 mg/dL (0.0-0.4) 12/12/19 15: Neonat Total Bilirubin Not Reportable 12/12/19 15: Neonat Direct Bilirubin Not Reportable 12/12/19: Neonat Indirect Bili Not Reportable 12/12/19 15: AST 13 U/L (14-36) L 12/12/19 15: ALT 10 U/L (<35) 12/12/19 15:23 Alkaline Phosphatase 115 U/L (38-126) 12/12/19 15:23 Lactate Dehydrogenase 130 U/L (120-246) 12/12/19 15: Total Protein 5.7 g/dL (6.3-8.2) L 12/12/19 15: Albumin 3.0 g/dL (3.5-5.0) L 12/12/19 15:23 Urine Color YELLOW 12/12/19 14:36 Urine Appearance CLEAR 12/12/19 14:36 Urine pH 5.0 (5.0-9.0) 12/12/19 14:36 Ur Specific Leona 1.029 12/12/19 14:36 Urine Protein 100 mg/dL (NEGATIVE) H 12/12/19 14:36 Urine Glucose (UA) 50 mg/dL (NEGATIVE) H 12/12/19 14:36 Urine Ketones TRACE mg/dL (NEGATIVE) H 12/12/19 14:36 Urine Blood SMALL (NEGATIVE) H 12/12/19 14:36 Urine Nitrite NEGATIVE (NEGATIVE) 12/12/19 14:36 Urine Bilirubin NEGATIVE (NEGATIVE) 12/12/19 14:36 Urine Urobilinogen NEGATIVE mg/dL (<2.0) 12/12/19 14:36 Ur Leukocyte Esterase NEGATIVE (NEGATIVE) 12/12/19 14:36 Urine WBC (Auto) 9 /HPF 12/12/19 14:36 Urine RBC (Auto) 4 /HPF 12/12/19 14:36 Urine Bacteria (Auto) 2+ /HPF 12/12/19 14:36 Squamous Epi Cells Auto 7 /HPF 12/12/19 14:36 Urine Mucus (Auto) OCC /LPF 12/12/19 14:36 Ur 24 Hour Volume 1890 mL 12/13/19 14:36 Urine Creatinine 234.3 mg/dL (16-327) 12/12/19 14:36 Ur Total Protein 24 Hr 471 mg/day (42-225) H 12/13/19 14:36 Protein/Creatinin Ratio 0.3 mg/mg (0.0-0.2) H 12/12/19 14:36 Urine Total Protein 24.9 mg/dL (<12) H 12/13/19 14:36 Urine Ascorbic Acid NEGATIVE (NEGATIVE) 12/12/19 14:36 Urine Opiates Screen NEGATIVE 12/12/19 14:36 Urine Methadone Screen NEGATIVE 12/12/19 14:36 Ur Barbiturates Screen NEGATIVE 12/12/19 14:36 Ur Phencyclidine Scrn NEGATIVE 12/12/19 14:36 Ur Amphetamines Screen NEGATIVE 12/12/19 14:36 U Benzodiazepines Scrn NEGATIVE 12/12/19 14:36 Urine Cocaine Screen NEGATIVE 12/12/19 14:36 U Marijuana (THC) Screen NEGATIVE 12/12/19 14:36 RPR NONREACTIVE (NONREACTIVE) 12/12/19 15:23 Chlamydia DNA (PCR) NOT DETECTED (NOT DETECT) 12/12/19 18:44 N.gonorrhoeae DNA (PCR) NOT DETECTED (NOT DETECT) 12/12/19 18:44 Slides for Path Review Cancelled 12/14/19 02:28 Blood Type A NEGATIVE 12/15/19 06:55 Antibody Screen NEGATIVE 12/12/19 15:23 Screen NEGATIVE 12/15/19 06:55 Crossmatch See Detail 12/12/19 15:23 Stroke Is this a Stroke Patient?: No Acute Heart Failure - Is this a Heart Failure Patient?: No
[2019-12-17] MEDS: PRENATAL VITAMIN W DHA CAPSULE PO SCH (10:46)
[2019-12-17] MEDS: DOCUSATE SODIUM 100 MG CAPSULE PO SCH (10:46)
[2019-12-17] MEDS: NIFEDIPINE 30 MG TAB.ER.24 PO SCH (10:46)
[2019-12-17] MEDS: MULTIVITAMINS W-IRON TABLET, CHEWABLE PO SCH (11:00)
[2019-12-17 13:41] VITALS: BP 138/87
== END 2019-12-17 15:15 | disposition home or self-care (01) | DRG 788 ==
LOC: LC 14:29 → LR 17:59 → 2S 12-13 10:30
PROVIDERS: ADMIT Student in an Organized Health Care Education/Training Program; ATTEND Student in an Organized Health Care Education/Training Program
PROC: 3E0334Z Introduction of Serum, Toxoid and Vaccine into Peripheral Vein, Percutaneous Approach (ICD-10-PCS; 2019-12-14)
PROC: 10D00Z1 Extraction of Products of Conception, Low, Open Approach (ICD-10-PCS; principal; 2019-12-14 07:45)
DX: O13.4 Gestational [pregnancy-induced] hypertension without significant proteinuria, complicating childbirth (principal); O24.425 Gestational diabetes mellitus in childbirth, controlled by oral hypoglycemic drugs; O99.214 Obesity complicating childbirth; F17.210 Nicotine dependence, cigarettes, uncomplicated; O34.211 Maternal care for low transverse scar from previous cesarean delivery; N85.8 Other specified noninflammatory disorders of uterus; O99.334 Smoking (tobacco) complicating childbirth; Z37.0 Single live birth; Z91.040 Latex allergy status; Z91.14 Patient's other noncompliance with medication regimen; Z3A.37 37 weeks gestation of pregnancy; Z79.84 Long term (current) use of oral hypoglycemic drugs
CPT/HCPCS: 1961; 36415; 59025; 80053; 80307; 81001; 82570; 82962; 83036; 83615; 84156; 84550; 85025; 85027; 85461; 86592; 86850; 86900; 86901; 86920; 87077; 87081; 87491; 87591; 94799; J0131; J0690; J0702; J1815; J1885; J2210; J2250; J2270; J2370; J2405; J2590; J2790; J3010; J3490; J7060; J7120